=== PATIENT | male | born 1960 | race American Indian/Alaskan Native ===

== ENCOUNTER 2019-03-13 07:18 | Day surgery (SDC) | payer MEDICARE ==
[2019-03-13] MEDS ORDERED: SODIUM CHLORIDE 0.9% 1000 ML 1,000 ML IV SCH (08:30)
[2019-03-13] MEDS ORDERED: LIDOCAINE MPF (2%) 20 MG/1 ML VIAL 5 ML ONE (09:00)
--- NOTE | 2019-03-13 09:29 | Anesthesia Day of Surgery ---
Anesthesia Day of Surgery - Day of Surgery Patient Examined: Yes Patient H&P Reviewed: Yes Patient is NPO: Yes
--- NOTE | 2019-03-13 09:31 | Anesthesia Consultation ---
Anesthesia Consult and Med Hx Date of service: 03/13/19 - Airway Anesthetic Teeth Evaluation: Chipped, Dentures (upper), Partials (lower), Edentulous (upper) ROM Head & Neck: Inadequate (Decrease extension-s/p ACDF) Mallampati Class: Class II Intubation Access Assessment: Probably Good - Pre-Operative Health Status ASA Pre-Surgery Classification: ASA2 Proposed Anesthetic Plan: MAC - Cardiovascular System Hx Hypertension: Yes Hx Coronary Artery Disease: No (Pt reporst negative ETT 2 years ago) - Central Nervous System Hx Back Pain: Yes (S/P lumbar fusion)
[2019-03-13] MEDS ORDERED: PROPOFOL 200 MG/20 ML VIAL IV ONE ×2 (09:49)
--- NOTE | 2019-03-13 10:17 | Procedure Note ---
Date of procedure: 03/13/19 Pre-op diagnosis: Colon Polyp Screening/ F/H/O Cancer (Breast cancer- mother) Post-op diagnosis: other (No Colon Polyps or Internal Hemorrhoids noted/ Minimal Cecal diverticuli) Procedure: Colonoscopy Anesthesia: MAC Surgeon: BRIGIDA SAHA Estimated blood loss: none Pathology: none Condition: stable Disposition: same day (Encourage fiber intake. resume home medication and follow up in 1 to 2 weeks ([phone]).)
--- NOTE | 2019-03-13 10:25 | Operative Report ---
PROCEDURE: Colonoscopy. INDICATIONS: This is a 59-year-old -[place] gentleman with a family history of cancer whose last colonoscopy was many years ago. Repeat colonoscopy was done as part of colon polyp screening. DESCRIPTION OF PROCEDURE: Procedure was done after getting informed consent with MAC anesthesia. Initial rectal exam was unremarkable. Instrument was passed through the rectum onto the cecum, which was identified with the ileocecal valve and the appendiceal orifice. Visualization was fair to good. The terminal ileum was intubated, which showed a few diverticula. The ascending colon showed normal mucosa as did the transverse colon, descending colon, sigmoid and the rectum appeared normal on the retroverted view without any evidence of any internal hemorrhoids. No biopsies were done. There was no bleeding associated with the procedure. ASSESSMENT: Colon polyp screening, family history of cancer. The patient's mother had breast cancer. No colon polyps noted or any internal hemorrhoids noted. There were a few cecal diverticula and there was normal ileal mucosa. Visualization was fair to good. There was no bleeding associated with the procedure and no complications associated with the procedure. The patient will be asked to resume home medication. Encourage fiber supplements and follow up in the office in 1-2 weeks' time. Thank you for the kind referral. JOB# [id number] BRYAN/WAYNE
[2019-03-13] MEDS ORDERED: WATER FOR IRRIG STERILE 250 ML BOTTLE IR ONE (10:50)
[2019-03-13 10:59] VITALS: BP 113/65
--- NOTE | 2019-03-13 14:14 | Post Anesthesia Evaluation ---
- Post Anesthesia Evaluation Patient Participated: Yes Airway Patent: Yes Stable Respiratory Function: Yes Nausea/Vomiting: No Temp > 96.8F: Yes Pain Manageable: Yes Adequeate Hydration: Yes Anesthesia Complications: No Block Receding Appropriately: Not Applicable Patient on Ventilator: No
== END 2019-03-13 07:19 | disposition home or self-care (01) ==
LOC: GIO 07:18
DX: Z12.11 Encounter for screening for malignant neoplasm of colon (principal); K57.30 Diverticulosis of large intestine without perforation or abscess without bleeding; I10 Essential (primary) hypertension; Z80.3 Family history of malignant neoplasm of breast; Z80.0 Family history of malignant neoplasm of digestive organs; Z79.899 Other long term (current) drug therapy; Z98.890 Other specified postprocedural states
CPT/HCPCS: G0105; J2704; J7030